=== PATIENT | male | born 1945 | race Caucasian/White ===

== ENCOUNTER 2021-12-12 12:38 | Emergency (ER) | payer MEDICARE ==
[2021-12-12] MEDS ORDERED: Diphtheria,Pertussis(Acell),Tetanus Vaccine 0.5 ML Syringe IM ONE (13:36)
[2021-12-12] MEDS ORDERED: Lidocaine 1% 5 ML VIAL INJECT ONE (13:41)
[2021-12-12] MEDS ORDERED: Bacitracin Oint 1 GM U/D Packet TOP ONE (13:42)
== END 2021-12-12 15:31 | disposition home or self-care (01) ==
LOC: JP.ED 12:38
DX: S61.012A Laceration without foreign body of left thumb without damage to nail, initial encounter (principal); I10 Essential (primary) hypertension; Z79.899 Other long term (current) drug therapy; Z79.82 Long term (current) use of aspirin; Z23 Encounter for immunization; W21.89XA Striking against or struck by other sports equipment, initial encounter
CPT/HCPCS: 12002; 73140-26-FA; 73140-FA; 90471; 90715; 99281; 99283-25